=== PATIENT | female | born 1995 ===

== ENCOUNTER 2016-06-22 10:16 | Emergency (ER) | payer MEDICAID ==
[~2016-06-22] VITALS: Ht 167.6 cm; Wt 60.5 kg
[~2016-06-22 10:16] MED LIST: AMOX500T PO; VENTAER INH; ZITH250T PO
[2016-06-22 10:18] VITALS: BP 120/70; PULSE 75; RESP 16; TEMP 98; O2SAT 99
[2016-06-22] MEDS ORDERED: SODIUM CHLOR 0.9% 1000 ML INJ 1,000 ML IV SCH (10:41)
[2016-06-22] MEDS ORDERED: ONDANSETRON HCL 4 MG/2 ML VIAL IVP ONE (10:45)
[2016-06-22] MEDS ORDERED: SODIUM CHLORIDE 0.9% FLUSH 10 ML FLUSH IV FLUSH PRN (10:45)
--- NOTE | 2016-06-22 10:46 | PD ---
HPI Chief Complaint: GI Complaint Time Seen by Provider: 10:43 Travel History International Travel<30 days: No Contact w/Intl Traveler<30days: No History of Present Illness HPI 20-year-old female presents to the emergency department for evaluation of nausea , vomiting, diarrhea, diffuse abdominal pain for 2 days. She reports vomiting once yesterday and once today. However, she states the diarrhea has been nonstop. She denies any blood in her stool. She denies any fevers or chills. No chest pain or shortness of breath. She denies any previous abdominal issues. She denies . She denies any abnormal vaginal discharge. Patient denies any risk of STDs. She denies any pelvic pain. No urinary symptoms. Patient denies any history of abdominal surgeries. She denies anybody else in her family being sick with similar symptoms. PFSH Past Medical History Asthma: Yes Immunizations Current: Yes Tetanus Vaccination: Unknown Influenza Vaccination: No ?: Not LMP: 05/31/16 : 0 Para: 0 Miscarriage: 0 : 0 Past Surgical History Surgical History: No Previous Surgery Social History Alcohol Use: No Tobacco Use: No Substance Use: No Allergies-Medications (Allergen,Severity, Reaction): Coded Allergies: No Known Allergies (Verified , 06/22/16) Reported Meds & Prescriptions Reported Meds & Active Scripts Active Review of Systems Except as stated in HPI: all other systems reviewed are Neg Physical Exam Narrative GENERAL: Well-nourished, well-developed female patient, ambulatory. Afebrile. SKIN: Focused skin assessment warm/dry. HEAD: Normocephalic. Atraumatic. EYES: No scleral icterus. No injection or drainage. NECK: Supple, trachea midline. No JVD or lymphadenopathy. CARDIOVASCULAR: Regular rate and rhythm without murmurs, gallops, or rubs. RESPIRATORY: Breath sounds equal bilaterally. No accessory muscle use. Lungs sounds are clear to auscultation. GASTROINTESTINAL: Abdomen soft and nondistended. Patient has diffuse tenderness throughout, worse in the left lower quadrant. MUSCULOSKELETAL: No cyanosis, or edema. BACK: Nontender without obvious deformity. No CVA tenderness. Data Data Last Documented VS Vital Signs Date Time Temp Pulse Resp B/P Pulse Ox O2 Delivery O2 Flow Rate FiO2 06/22/16 13:57 96 16 96/49 100 Room Air 06/22/16 10:18 98.0 Orders Complete Blood Count With Diff (06/22/16 10:41) Comprehensive Metabolic Panel (06/22/16 10:41) Lipase (06/22/16 10:41) Urinalysis - C+S If Indicated (06/22/16 10:41) Iv Access Insert/Monitor (06/22/16 10:41) Ecg Monitoring (06/22/16 10:41) Oximetry (06/22/16 10:41) Ondansetron Inj (Zofran Inj) (06/22/16 10:45) Sodium Chlor 0.9% 1000 Ml Inj (Ns 1000 M (06/22/16 10:41) Sodium Chloride 0.9% Flush (Ns Flush) (06/22/16 10:45) Ed Urine Pregnancytest Poc (06/22/16 10:41) Ct Abd/Pel W Iv Contrast(Rout) (06/22/16 ) Iohexol 350 Inj (Omnipaque 350 Inj) (06/22/16 12:42) Labs Laboratory Tests Test 06/22/16 06/22/16 11:05 13:15 White Blood Count 11.7 TH/MM3 Red Blood Count 4.77 MIL/MM3 Hemoglobin 14.0 GM/DL Hematocrit 41.5 % Mean Corpuscular Volume 87.0 FL Mean Corpuscular Hemoglobin 29.3 PG Mean Corpuscular Hemoglobin 33.7 % Concent Red Cell Distribution Width 13.4 % Platelet Count 227 TH/MM3 Mean Platelet Volume 9.5 FL Neutrophils (%) (Auto) 82.8 % Lymphocytes (%) (Auto) 8.9 % Monocytes (%) (Auto) 6.9 % Eosinophils (%) (Auto) 1.1 % Basophils (%) (Auto) 0.3 % Neutrophils # (Auto) 9.7 TH/MM3 Lymphocytes # (Auto) 1.0 TH/MM3 Monocytes # (Auto) 0.8 TH/MM3 Eosinophils # (Auto) 0.1 TH/MM3 Basophils # (Auto) 0.0 TH/MM3 CBC Comment DIFF FINAL Differential Comment Sodium Level 137 MEQ/L Potassium Level 4.1 MEQ/L Chloride Level 105 MEQ/L Carbon Dioxide Level 22.3 MEQ/L Anion Gap 10 MEQ/L Blood Urea Nitrogen 16 MG/DL Creatinine 0.73 MG/DL Estimat Glomerular Filtration 102 ML/MIN Rate Random Glucose 89 MG/DL Calcium Level 9.2 MG/DL Total Bilirubin 0.4 MG/DL Aspartate Amino Transf 12 U/L (AST/SGOT) Alanine Aminotransferase 22 U/L (ALT/SGPT) Alkaline Phosphatase 68 U/L Total Protein 9.0 GM/DL Albumin 4.6 GM/DL Lipase 226 U/L Urine Color LIGHT-YELLOW Urine Turbidity CLEAR Urine pH 5.5 Urine Specific Golden GREATER THAN 1.050 Urine Protein TRACE mg/dL Urine Glucose (UA) NEG mg/dL Urine Ketones 10 mg/dL Urine Occult Blood TRACE Urine Nitrite NEG Urine Bilirubin NEG Urine Urobilinogen LESS THAN 2.0 MG/DL Urine Leukocyte Esterase NEG Urine RBC 2 /hpf Urine WBC 1 /hpf Urine Squamous Epithelial 3 /hpf Cells Urine Transitional Epithelial <1 /hpf Cells Urine Bacteria RARE /hpf Urine Mucus FEW /lpf Microscopic Urinalysis Comment CULT NOT INDICATED MDM Medical Decision Making Medical Screen Exam Complete: Yes Emergency Medical Condition: Yes Medical Record Reviewed: Yes Interpretation(s) Last Impressions Abdomen/Pelvis CT 06/22/16 0000 Signed Impressions: Service Date/Time: Wednesday, June 22, 2016 12:33 - CONCLUSION: Normal examination. Hung Ramirez MD Differential Diagnosis Gastritis versus gastroenteritis versus diverticulitis versus UTI versus versus viral syndrome versus pancreatitis Narrative Course 20-year-old female presents to the emergency department for evaluation of abdominal pain, nausea, vomiting, diarrhea for 2 days. She does state the pain is intermittent. She currently rates it 7/10. CBC, CMP, lipase, UA, urine test are ordered and pending. Patient is given normal saline 1 L IV bolus and Zofran 4 mg IV. CBC shows slight leukocytosis of 11.7. CMP shows no acute abnormal. Lipase is 226. UA shows no evidence of acute infection. UPT is negative. CT abdomen/ pelvis is normal. Symptoms and physical are most consistent with a viral gastroenteritis. She'll be discharged with a prescription for Zofran and Imodium. She is encouraged to follow-up with her primary care physician. She is return for any acute worsening of symptoms. The patient was discharged in stable condition with instructions, including return instructions and follow up instructions. Diagnosis Primary Impression: Viral gastroenteritis Referrals: Primary Care Physician call for appointment Patient Instructions: Gastroenteritis (ED), General Instructions Departure Forms: Tests/Procedures, Work Release Enter return to work date: Jun 25, 2016 Additional Instructions: Take Zofran as instructed as needed for nausea. Take Imodium as directed as needed for diarrhea. [place] diet. Drink plenty of fluids. Follow-up with your primary care physician. Return to the emergency department for any acute worsening of symptoms. Med/Other Pt SpecificInfo: Prescription(s) given Scripts Loperamide (Imodium A-D)2 Mg Cap2 Mg PO Q6H PRN (DIARRHEA) #30 CAP Ref 0 Prov:Katherine Fay 06/22/16 Ondansetron Odt 4 Mg Tab4 Mg SL Q6HR PRN (Nausea/Vomiting) #12 TAB Ref 0 Prov:Katherine Fay 06/22/16 Disposition: 01 DISCHARGE HOME Condition: Stable Katherine Fay Jun 22, 2016 10:46
[2016-06-22 11:14] LABS: AUTOMATED NEUTROPHIL # 9.7 TH/MM3 (1.8-7.7); BASOPHIL % 0.3 % (0.0-2.0); EOSINOPHIL # 0.1 TH/MM3 (0-0.4); EOSINOPHIL % 1.1 % (0.0-4.0); HEMATOCRIT 41.5 % (35.0-46.0); HEMO FLAGS DIFF FINAL; LYMPH % 8.9 % (9.0-44.0); MEAN CORPUSCULAR HEMOGLOBIN 29.3 PG (27.0-34.0); MEAN CORPUSCULAR HGB CONC 33.7 % (32.0-36.0); MONO % 6.9 % (0.0-8.0); NEUT % 82.8 % (16.0-70.0); PLATELET COUNT 227 TH/MM3 (150-450); RED BLOOD COUNT 4.77 MIL/MM3 (4.00-5.30); RED CELL DISTRIBUTION WIDTH 13.4 % (11.6-17.2); WHITE BLOOD COUNT 11.7 TH/MM3 (4.0-11.0)
[2016-06-22 11:30] LABS: ANION GAP 10 MEQ/L (5-15); AST (GOT) 12 U/L (16-38); BICARBONATE 22.3 MEQ/L (21.0-32.0); BLOOD UREA NITROGEN 16 MG/DL (7-18); CHLORIDE 105 MEQ/L (98-107); GLOMERULAR FILTRATION RATE 102 ML/MIN (>89); POTASSIUM 4.1 MEQ/L (3.5-5.1); SODIUM (NA) 137 MEQ/L (136-145)
[2016-06-22 11:34] LABS: ALKALINE PHOSPHATASE 68 U/L (45-117); ALT (GPT) 22 U/L (9-42); TOTAL BILIRUBIN ADULT 0.4 MG/DL (0.2-1.0)
[2016-06-22] MEDS ORDERED: IOHEXOL 350 MG/ML 10 ML VIAL (for RAD DIAG) IV ONE (12:42)
--- NOTE | 2016-06-22 12:48 | RADRPT ---
EXAM DATE/TIME: 06/22/2016 12:33 [facility] COMPARISON: No previous studies available for comparison. INDICATIONS : Generalized abdominal pain with nausea, vomiting, and diarrhea. IV CONTRAST: 69 cc Omnipaque 350 (iohexol) IV ORAL CONTRAST: No oral contrast ingested. RADIATION DOSE: 4.78 CTDIvol (mGy) MEDICAL HISTORY : None SURGICAL HISTORY : None. ENCOUNTER: Initial ACUITY: 2 days PAIN SCALE: 6/10 LOCATION: Bilateral abdominal TECHNIQUE: Volumetric scanning of the abdomen and pelvis was performed. Using automated exposure control and ad justment of the mA and/or kV according to patient size, radiation dose was kept as low as reasonably achievable to obtain optimal diagnostic quality images. FINDINGS: LOWER LUNGS: The visualized lower lungs are clear. LIVER: Homogeneous density without lesion. There is no dilation of the biliary tree. No calcified [place] es. SPLEEN: Normal size without lesion. PANCREAS: Within normal limits. KIDNEYS: Normal in size and shape. There is no mass, stone or hydronephrosis. ADRENAL GLANDS: Within normal limits. VASCULAR: There is no aortic aneurysm. BOWEL/MESENTERY: The stomach, small bowel, and colon demonstrate no acute abnormality. There is no free intraperitone al air or fluid. ABDOMINAL WALL: Within normal limits. RETROPERITONEUM: There is no lymphadenopathy. BLADDER: No wall thickening or mass. REPRODUCTIVE: Within normal limits. INGUINAL: There is no lymphadenopathy or hernia. MUSCULOSKELETAL: Within normal limits for patient age. CONCLUSION: Normal examination. Hung Ramirez MD on June 22, 2016 at 12:45 Board Certified Radiologist. This report was verified electronically.
[2016-06-22 13:57] VITALS: BP 96/49; PULSE 96; RESP 16; O2SAT 100
[2016-06-22 13:59] LABS: BACTERIA, URINE RARE /hpf; BLOOD, URINE TRACE (NEG); GLUCOSE,URINE NEG (NEG); KETONE, URINE 10 mg/dL (NEG); MUCUS URINE FEW /lpf (OCC); NITRITE,URINE NEG (NEG); PH, URINE 5.5 (5.0-8.5); SQUAMOUS EPITHELIAL CELL URINE 3 /hpf (0-5); TRANSITIONAL EPI CELLS, URINE <1 /hpf; URINE COLOR LIGHT-YELLOW (YELLW/STRAW)
[2016-06-22 14:01] LABS: COMMENT (UR) CULT NOT INDICATED; CULTURE IF INDICATED CULT NOT INDICATED
[2016-06-22] MEDS ORDERED: LOPE7.5C PO (14:09)
[2016-06-22] MEDS ORDERED: ONDA4TAB7 SL (14:09)
== END 2016-06-22 14:32 | disposition home or self-care (01) ==
LOC: NEPD 10:16
DX: A08.4 Viral intestinal infection, unspecified (principal); Z87.09 Personal history of other diseases of the respiratory system
CPT/HCPCS: 74177; 80053; 81001; 83690; 84703; 85025; 96361; 96374; 99284; J2405; J7030; Q9967